=== PATIENT | male | born 1965 | race Caucasian/White ===

== ENCOUNTER 2018-08-02 14:35 | Emergency (ER) | payer OTHER ==
[2018-08-02 14:39] VITALS: TEMP 97.7
[2018-08-02] MEDS ORDERED: DIAZEPAM 5 MG TAB PO STA (14:49)
[2018-08-02] MEDS ORDERED: KETOROLAC 60 MG/2 ML VIAL IM STA (14:49)
--- NOTE | 2018-08-02 15:01 | ED ---
General Adult HPI - General Chief complaint: Neck Pain/Injury Stated complaint: Neck pain Time Seen by Provider: 08/02/18 14:41 Source: patient, RN notes reviewed Mode of arrival: ambulatory Limitations: no limitations - History of Present Illness Initial comments: Patient 52-year-old male presents to the emergency room today with chief complaint of left-sided neck pain that started approximately 6 days ago. He states he woke up in the morning had some discomfort in the left side of the neck. States it's worse with certain movements of rotation to the left. Patient denies any other injury or complaint. 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 States he had a difficult time with certain movements. Patient states she's tried aspirin, Tylenol, ibuprofen with only little relief of the symptoms. Patient denies any other complaints or symptoms at this time. Patient denies any recent fever, chills, shortness of breath, chest pain, back pain, headaches or visual changes, or any other complaints. - Related Data Previous Rx's Medication Instructions Recorded Cyclobenzaprine [Flexeril] 10 mg PO TID #20 tab 08/02/18 Allergies Allergy/AdvReac Type Severity Reaction Status Date / Time No Known Allergies Allergy Verified 08/02/18 15:18 Review of Systems ROS Statement: Those systems with pertinent positive or pertinent negative responses have been documented in the HPI. ROS Other: All systems not noted in ROS Statement are negative. Past Medical History Past Medical History: No Reported History History of Any Multi-Drug Resistant Organisms: None Reported Past Surgical History: No Surgical Hx Reported Past Psychological History: No Psychological Hx Reported Smoking Status: Current every day smoker Past Alcohol Use History: Occasional Past Drug Use History: Cocaine General Exam - General Exam Comments Initial Comments: General: The patient is awake and alert, in no distress, and does not appear acutely ill. Eye: There is normal conjunctiva bilaterally. No signs of icterus. Ears, nose, mouth and throat: There are moist mucous membranes and no oral lesions. Neck: The neck is supple, there is no tenderness or JVD. Musculoskeletal: Full range of motion of the extremities. Patient does show slightly limited range of motion with rotation to the left side with the neck. No tenderness in the midline of cervical, thoracic spine. No step-off or deformity. Patient is tender over the sternocleidomastoid on the left. Sensations are intact. Radial pulses are 2+. Neurological: A&O x 3. CN II-XII intact, There are no obvious motor or sensory deficits. Coordination appears grossly intact. Speech is normal. Skin: Skin is warm and dry and no rashes or lesions are noted. Psychiatric: Cooperative, appropriate mood & affect, normal judgment. Limitations: no limitations Course Vital Signs 08/02/18 14:36 Temperature 97.7 F Pulse Rate 114 H Respiratory 20 Rate Blood Pressure 151/103 O2 Sat by Pulse 96 Oximetry Medical Decision Making - Medical Decision Making Patient's repeat blood pressure was 145/96 when he was in the room. Patient's heart rate mildly elevated. Does admit that he feels nervous. Patient states he hasn't been to a doctor in 20 years. Patient's symptoms are consistent with muscle spasm of the sternocleidomastoid on the left. Patient started on muscle relaxer here in emergency room. Advised continue with anti-inflammatories. Was given doses of Toradol, Valium here. Disposition Clinical Impression: Spasmodic torticollis Disposition: HOME SELF-CARE Condition: Good Additional Instructions: Please use medication as discussed. Please be advised that muscle relaxers may make you drowsy. Please follow-up with family doctor in the next 2 days of symptoms have not improved. Please return to emergency room if the symptoms increase or worsen or for any other concerns. Prescriptions: Cyclobenzaprine [Flexeril] 10 mg PO TID #20 tab Is patient prescribed a controlled substance at d/c from ED?: No Referrals: None,Stated [Primary Care Provider] - 1-2 days Tan Loo DO [STAFF PHYSICIAN] - 1-2 days Radha Ramirez MD [REFERRING] - 1-2 days Time of Disposition: 15:25
[2018-08-02 16:08] VITALS: BP 123/89; PULSE 72; RESP 18
== END 2018-08-02 16:07 | disposition home or self-care (01) ==
LOC: EC 14:35
DX: G24.3 Spasmodic torticollis (principal); R00.0 Tachycardia, unspecified; F17.200 Nicotine dependence, unspecified, uncomplicated
CPT/HCPCS: 99283; 96372; J1885

== ENCOUNTER 2021-03-10 18:55 | Emergency (ER) | payer BC, OTHER ==
[2021-03-10 20:18] VITALS: TEMP 99
--- NOTE | 2021-03-10 21:32 | XR ---
EXAMINATION TYPE: XR shoulder complete LT DATE OF EXAM: 03/10/2021 CLINICAL HISTORY: Left shoulder pain TECHNIQUE: Three views of the left shoulder are obtained. COMPARISON: None. FINDINGS: There is no acute fracture/dislocation evident in the left shoulder. There is degenerative spurring of the acromioclavicular joint with joint space narrowing. The glenohu meral joint spaces appear within normal limits. The visualized ribs are intact and unremarkable. IMPRESSION: There is no acute fracture or dislocation in the left shoulder. Significant degenerative spurring of the acromioclavicular joint.
[2021-03-10 22:30] VITALS: BP 164/92; PULSE 108; RESP 19
--- NOTE | 2021-03-10 22:38 | ED ---
General Adult HPI - General Chief complaint: Extremity Injury, Upper Stated complaint: shoulder pain Time Seen by Provider: 03/10/21 22:25 Source: patient Mode of arrival: ambulatory Limitations: no limitations - History of Present Illness Initial comments: 55-year-old male presents to the emergency Department with complaints of left shoulder pain. Patient denies injury or trauma. States pain began a few weeks ago, but has progressively worsened over the past 3-4 days. 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 Denies any loss of sensation or range of motion in the arm. Patient denies neck pain, back pain, chest discomfort or shortness of breath. - Related Data Previous Rx's Medication Instructions Recorded Cyclobenzaprine [Flexeril] 10 mg PO TID #20 tab 08/02/18 Ibuprofen [Motrin] 600 mg PO Q8HR PRN #20 tab 03/10/21 Allergies Allergy/AdvReac Type Severity Reaction Status Date / Time No Known Allergies Allergy Verified 03/10/21 20:18 Review of Systems ROS Statement: Those systems with pertinent positive or pertinent negative responses have been documented in the HPI. ROS Other: All systems not noted in ROS Statement are negative. Past Medical History Past Medical History: No Reported History History of Any Multi-Drug Resistant Organisms: None Reported Past Surgical History: No Surgical Hx Reported Past Psychological History: No Psychological Hx Reported Smoking Status: Current every day smoker Past Alcohol Use History: Occasional Past Drug Use History: Cocaine General Exam Limitations: no limitations General appearance: alert, in no apparent distress Neck exam: Present: normal inspection. Absent: tenderness, meningismus, lymphadenopathy Respiratory exam: Present: normal lung sounds bilaterally. Absent: respiratory distress, wheezes, rales, rhonchi, stridor Cardiovascular Exam: Present: regular rate, normal rhythm, normal heart sounds. Absent: systolic murmur, diastolic murmur, rubs, gallop, clicks Left General: Present: normal inspection Shoulder Exam: Present: normal inspection, full ROM. Absent: tenderness, swelling, deformity, tenderness over AC joint Upper Arm exam: Present: normal inspection Neuro motor exam: Present: wrist extension intact, fingers 2-5 abduction intact Vascular: Present: normal capillary refill, radial pulse. Absent: vascular compromise Neurological exam: Present: alert, oriented X3, CN II-XII intact Psychiatric exam: Present: normal affect, normal mood Skin exam: Present: warm, dry, intact, normal color. Absent: rash Course Vital Signs 03/10/21 03/10/21 20:15 22:27 Temperature 99.0 F Pulse Rate 111 H 108 H Respiratory 20 19 Rate Blood Pressure 167/102 164/92 O2 Sat by Pulse 97 97 Oximetry Medical Decision Making - Medical Decision Making 55-year-old male was evaluated for complaints of non-injurious left shoulder pain. Physical exam is negative for any range of motion deficit. X-ray was obtained of the left shoulder showing degenerative changes of the acromioclavicular joint. Results were discussed with patient, including treatment with anti-inflammatory medicine. Encouraged to follow up with orthopedist for further evaluation and treatment. Patient verbalizes understanding and agrees with this plan. Patient was provided a work note. Patient's case was discussed with my attending Dr. Shahid - Radiology Data Radiology results: report reviewed, image reviewed X-ray of the left shoulder was obtained. Report was reviewed in its entirety. Impression per Dr. Ng is no acute fracture or dislocation in the left shoulder. Significant degenerative spurring of the acromioclavicular joint Disposition Clinical Impression: Shoulder pain, left, Degenerative arthritis of left shoulder region Disposition: HOME SELF-CARE Condition: Stable Instructions (If sedation given, give patient instructions): Shoulder Pain (ED) Additional Instructions: Rest. Follow-up with orthopedist as directed. Anti-inflammatory medication for discomfort. Return to the emergency department with any new, worsening or concerning symptoms. Prescriptions: Ibuprofen [Motrin] 600 mg PO Q8HR PRN #20 tab PRN Reason: Pain Is patient prescribed a controlled substance at d/c from ED?: No Referrals: None,Stated [Primary Care Provider] - 1-2 days Jaswant Gay MD [Medical Doctor] - 1-2 days Time of Disposition: 22:45
== END 2021-03-10 22:53 | disposition home or self-care (01) ==
LOC: EC 18:55
DX: M19.012 Primary osteoarthritis, left shoulder (principal); F17.200 Nicotine dependence, unspecified, uncomplicated
CPT/HCPCS: 99283